=== PATIENT | male | born 1985 | race Caucasian/White ===

== ENCOUNTER 2018-11-09 21:01 | Emergency (ER) | payer BC ==
[~2018-11-09 21:01] MED LIST: Iopamidol 370 76% 100 ML VIAL ONE
[2018-11-09] MEDS ORDERED: Aspirin Chewable 81 MG TAB ONE (21:23)
[2018-11-09] MEDS ORDERED: Prochlorperazine 10 MG/2 ML VIAL ONE (21:23)
[2018-11-09 22:02] LABS: Hemoglobin 15.3 g/dL (14.0-18.0); Mean Corpuscular HGB CONC 32.5 g/dL (32.0-36.0); Mean Corpuscular Hemoglobin 28.7 pg (27.0-31.0); Mean Corpuscular Volume 88.2 fL (78.0-98.0); Mean Platelet Volume 5.2 fL (7.4-10.4); Platelet Count 433 thou/uL (130-400); RBC Distribution Width 13.5 % (11.5-14.5); Red Blood Cell (RBC) Count 5.33 mill/uL (4.70-6.10); White Blood Cell (WBC) Count 20.5 thou/uL (4.8-10.8)
[2018-11-09 22:11] LABS: ALT (SGPT) 88 U/L (8-55); AST (SGOT) 39 U/L (5-34); Albumin 4.4 g/dL (3.5-5.0); Alkaline Phosphatase 77 U/L (40-150); BUN (Urea Nitrogen) 11 mg/dL (8.9-20.6); Bilirubin, Total 0.6 mg/dL (0.2-1.2); Calc. Creatinine Clearance 0 mL/min (70-130); Calcium 9.8 mg/dL (7.8-10.44); Chloride 106 mmol/L (98-107); Estimated GFR-MDRD 79; Globulin 3.1 g/dL (2.4-3.5); Glucose 120 mg/dL (70-105); Lipase 10 U/L (8-78); Potassium 4.3 mmol/L (3.5-5.1); Protein, Total 7.5 g/dL (6.0-8.3); Sodium 143 mmol/L (136-145)
--- NOTE | 2018-11-09 22:14 | RAD ---
PORTABLE CHEST: Date: 11-09-18 An AP portable film at 214 is compared with an 01-30-18 study done at [facility]. FINDINGS: There have been no significant interval changes. The heart size is stable. There is no vascular conge stion, edema, or focal pulmonary infiltrate. There are no large effusions. IMPRESSION: No acute thoracic finding. POS: HOME
[2018-11-09 22:19] LABS: Band 3 % (5-11); Lymphocytes 2 % (21-51); MDiff Complete? YES; Monocytes 11 % (0-10); Neutrophil 84 % (42-75); Platelet Morphology Comment Appears Increased; RBC Morphology Normal
--- NOTE | 2018-11-10 10:18 | CT ---
PRELIMINARY REPORT/[facility]/EMERGENCY AFTER HOURS PROCEDURE: EXAM: CT Angiography Chest With Contrast EXAM DATE/TIME: 11/09/2018 10:36 PM CLINICAL HISTORY: 33 years old, male; Angina; Patient HX: PT has a known HX of pe's; Additional info: Elev d dimer, cp TECHNIQUE: Imaging protocol: Computed tomographic angiography of the chest with intravenous contrast. 3D renderi ng: MIP reconstructed images were created and reviewed. Radiation optimization: All CT scans at this facility use at least one of these dose optimization twan hniques: automated exposure control; mA and/or kV adjustment per patient size (includes targeted exam s where dose is matched to clinical indication); or iterative reconstruction. Contrast material: ISOVUE 370; Contrast volume: 95 ml; Contrast route: RT AC; COMPARISON: No relevant prior studies available. FINDINGS: Pulmonary arteries: Evaluation of the segmental and subsegmental pulmonary arteries is limited by art ifact. Otherwise, no evidence of PE. Aorta: Unremarkable. No aortic aneurysm. No aortic dissection. Lungs: Lungs are clear allowing for expiratory phase imaging. Pleural space: Unremarkable. No pneumothorax. No pleural effusion. Heart: Unremarkable. No cardiomegaly. No pericardial effusion. Mediastinum: Esophagus is unremarkable. Diaphragm: Elevation of the right hemidiaphragm. Liver: Hepatic steatosis. Spleen: Splenomegaly. Lymph nodes: Unremarkable. No enlarged lymph nodes. Bones/joints: Equivocal fracture of the anterolateral right fourth rib. Soft tissues: Unremarkable. IMPRESSION: 1. Splenomegaly. 2. Equivocal fracture of the anterolateral right fourth rib. Thank you for allowing us to participate in the care of your patient. Dictated and Authenticated by: Marco Clark MD 11/09/2018 10:57 PM Central Time ([place] & [place]) FINAL REPORT CT ANGIOGRAM CHEST WITH 3D RENDERING: EMERGENCY AFTER HOURS EXAM TIME: 10:39 p.m. DATE: 11/09/2018. Contrast density is borderline and the mid and more peripheral pulmonary artery branches are somewhat less than optimally opacified. No convincing CT evidence for acute pulmonary embolism. Slight defo rmity of the right 4th rib, nonspecific. Evidence for hepatomegaly and borderline size spleen. This report is in agreement with the preliminary report. POS: [facility]
== END 2018-11-09 23:30 | disposition home or self-care (01) ==
LOC: BURERS 21:01
DX: R11.2 Nausea with vomiting, unspecified (principal); K21.9 Gastro-esophageal reflux disease without esophagitis; Z86.711 Personal history of pulmonary embolism; Z87.442 Personal history of urinary calculi; Z87.891 Personal history of nicotine dependence; Z79.899 Other long term (current) drug therapy
CPT/HCPCS: 36415; 71045; 71275; 80053; 83690; 84484; 85025; 85379; 93005; 96361; 96365; 96372; J0500; J0780; Q9967